=== PATIENT | male | born 1985 | race Caucasian/White ===

== ENCOUNTER 2023-10-05 12:06 | Inpatient (IN) | payer BC, SELFPAY ==
[~2023-10-05] VITALS: Ht 188 cm; Wt 72.7 kg
[2023-10-05 13:44] LABS: AMPHETAMINES LEVEL URINE NEGATIVE (NEGATIVE); BARBITURATES URINE NEGATIVE (NEGATIVE); BENZODIAZEPINES URINE NEGATIVE (NEGATIVE)
[2023-10-05 13:45] LABS: CANNABINOIDS URINE NEGATIVE (NEGATIVE); COCAINE METABOLITE URINE NEGATIVE (NEGATIVE); OPIATES URINE NEGATIVE (NEGATIVE); PHENCYCLIDINE URINE NEGATIVE (NEGATIVE)
[2023-10-05 13:47] LABS: METHADONE URINE POSITIVE (NEGATIVE)
[2023-10-05] MEDS: HALOPERIDOL LACTATE 5MG/ML VIAL IM ONE (14:11)
[2023-10-05] MEDS: LORazepam 2 MG/ML 1ML VIAL IM ONE (14:11)
[2023-10-05 14:44] LABS: HEMOGLOBIN 15.5 g/dl (13.5-17.5); MEAN CORPUSCULAR HEMOGLOBIN 29.1 pg (27.0-33.0); MEAN CORPUSCULAR VOLUME 88.2 fl (80.0-96.0); PLATELET COUNT, AUTOMATED 484 10^3/uL (150-450); RED BLOOD COUNT 5.33 10^6/uL (4.30-6.10); WHITE BLOOD COUNT 11.7 10^3/uL (4.0-10.0)
[2023-10-05 15:16] LABS: ETHYL ALCOHOL (ETHANOL) 0.003 % (0.000-0.010)
[2023-10-05 15:17] LABS: ALBUMIN 4.9 G/DL (3.2-5.2); ALKALINE PHOSPHATASE 98 U/L (46-116); ALT/SGPT 29 U/L (7.0-40); AST/SGOT 31 U/L (<34); BILIRUBIN,DIRECT 0.4 MG/DL (<0.4); BLOOD UREA NITROGEN 10 MG/DL (9-23); CALCIUM LEVEL 10.3 MG/DL (8.5-10.1); CARBON DIOXIDE LEVEL 24 MMOL/L (20-31); CHLORIDE LEVEL 102 MMOL/L (98-107); CREATININE FOR GFR 0.73 MG/DL (0.70-1.30); GLOMERULAR FILTRATION RATE > 60.0 (>60); GLUCOSE, FASTING 112 MG/DL (60-100); POTASSIUM SERUM 3.6 MMOL/L (3.5-5.1); SALICYLATE LEVEL < 3.0 MG/DL (<30); SODIUM LEVEL 138 MMOL/L (136-145); TOTAL PROTEIN 8.3 G/DL (5.7-8.2)
[2023-10-05] MEDS ORDERED: HOME MED LIST COMPLETE! XX SCH (16:30)
[2023-10-06] MEDS ORDERED: MOM 30ML SUSPENSION UDC PO PRN (14:55)
[2023-10-06] MEDS ORDERED: ACETAMINOPHEN TAB 650MG DOSE (2X325MG) PO PRN (14:55)
[2023-10-06] MEDS ORDERED: MAALOX 30 ML SUSP *UDC PO PRN (14:55)
[2023-10-06] MEDS ORDERED: BENZTROPINE 1 MG TAB PO PRN (17:55)
[2023-10-06 18:04] VITALS: BP 136/77; TEMP 96.9; O2SAT 96
[2023-10-06] MEDS: BENZTROPINE MESYLATE 2MG/2ML VIAL IM STA (18:07)
[2023-10-06] MEDS: LORazepam 2 MG/ML 1ML VIAL IM STA (19:06)
[2023-10-06 20:20] VITALS: BP 119/71; TEMP 98; O2SAT 98
[2023-10-06] MEDS: diphenhydrAMINE 25MG CAP PO PRN (22:01)
[2023-10-06] MEDS: IBUPROFEN 400MG TAB PO PRN (22:02)
[2023-10-06] MEDS: traZODone 50 MG TAB PO PRN (22:02)
[2023-10-07 06:36] VITALS: BP 105/64; TEMP 97.3; O2SAT 99
[2023-10-07] MEDS: clonazePAM 0.5 MG TAB PO SCH ×2 (08:24→12:28)
[2023-10-07] MEDS ORDERED: METHADONE 10MG TAB PO SCH (09:00)
[2023-10-07 09:53] VITALS: BP 117/74; O2SAT 100
[2023-10-07] MEDS: clonazePAM 0.5 MG TAB PO ONE (10:02)
[2023-10-07] MEDS: cloNIDine 0.1MG TABLET PO SCH (10:56)
[2023-10-07 16:46] VITALS: BP 132/80; TEMP 97.7; O2SAT 100
[2023-10-07 20:45] VITALS: BP 99/57
[2023-10-07 21:00] VITALS: BP 99/57
[2023-10-08 06:18] VITALS: BP 111/68; TEMP 95
[2023-10-08 07:45] VITALS: O2SAT 99
[2023-10-08] MEDS: clonazePAM 0.5 MG TAB PO SCH (08:56)
[2023-10-08 12:13] VITALS: TEMP 98.1
== END 2023-10-08 13:50 | disposition home or self-care (01) | DRG 773 ==
LOC: M ED 12:06 → M ED INP 10-06 15:06 → M PSY 10-06 16:38
PROVIDERS: ADMIT Psychiatry & Neurology Child & Adolescent Psychiatry; ATTEND Psychiatry & Neurology Child & Adolescent Psychiatry
DX: F11.20 Opioid dependence, uncomplicated (principal); Z78.1 Physical restraint status